=== PATIENT | female | born 1975 | race Caucasian/White ===

== ENCOUNTER 2016-11-05 15:34 | Observation (INO) | payer OTHER ==
[~2016-11-05] VITALS: Ht 175.3 cm; Wt 115.2 kg
[2016-11-05 18:18] LABS: BASO % 0.4 % (0.1-1.2); EOS # 0.3 10_X3_uL (0.0-0.4); EOS % 4.5 % (0.7-5.8); GRAN # 4.5 10_X3_uL (1.6-6.1); GRAN % 63.2 % (34.0-71.1); HEMATOCRIT 37.5 % (34-45); HEMOGLOBIN 12.7 g/dL (11.2-15.7); LYMPH # 1.9 10_X3_uL (1.2-3.7); MEAN CORPUSCULAR HEMOGLOBIN 28.3 pg (27.0-33.0); MEAN CORPUSCULAR HGB CONC 33.9 g/dL (32.0-36.0); MEAN CORPUSCULAR VOLUME 83.5 fL (79-95); MEAN PLATELET VOLUME 9.8 fl (7.5-11.5); MONO # 0.4 10_X3_uL (0.2-0.9); MONO % 5.9 % (4.7-12.5); PLATELET COUNT 298 x10_3/uL (182-369); RED BLOOD COUNT 4.49 x10_6/uL (3.9-5.2); RED CELL DISTRIBUTION WIDTH 14.1 % (11.7-14.4); WHITE BLOOD COUNT 7.1 x10_3/uL (4.0-10.0)
[2016-11-05 19:32] LABS: PH,URINE 6.5 (5.0 - 9.0); URINE BILIRUBIN NEGATIVE (NEGATIVE); URINE BLOOD 1+ (NEGATIVE); URINE GLUCOSE (UA) NORMAL (NORMAL); URINE KETONE NEGATIVE (NEGATIVE); URINE LEUKOCYTE ESTERASE TRACE (NEGATIVE); URINE NITRATE NEGATIVE (NEGATIVE); URINE PROTEIN NEGATIVE (NEGATIVE); UROBILINOGEN NORMAL mg/dL (<1.0)
[2016-11-05 19:48] LABS: ALBUMIN 3.8 gm/dL (3.4-5.0); ALKALINE PHOSPHATASE 65 U/L (50-136); AMYLASE 44 U/L (15.62-74.58); AST/SGOT 14 U/L (7.04-26.96); BILIRUBIN,TOTAL 0.21 mg/dL (0.0-1.0); BLOOD UREA NITROGEN 11 mg/dL (7-18); CARBON DIOXIDE 25 mmol/L (21-32); CREATININE 0.6 mg/dL (0.6-1.3); GLUCOSE,RANDOM 98 mg/dL (70-99); LIPASE 20 U/L (6.75-60.75); POTASSIUM 4.2 mmol/L (3.5-5.1); SODIUM 137 mmol/L (136-145); TOTAL PROTEIN 6.3 gm/dL (6.4-8.2)
[2016-11-05 19:50] LABS: URINE RBC 0-5 /[HPF] (0-2); URINE SQUAMOUS EPITHELIAL CELL >20 /[HPF] (NONE SEEN)
[2016-11-05 19:51] LABS: URINE BACTERIA 1+ (NONE SEEN)
[2016-11-05 20:00] LABS: ALT/SGPT 17 U/L (3.5-33.9)
[2016-11-06 02:09] LABS: PH,URINE 6.5 (5.0 - 9.0); URINE BILIRUBIN NEGATIVE (NEGATIVE); URINE BLOOD 3+ (NEGATIVE); URINE GLUCOSE (UA) NORMAL (NORMAL); URINE KETONE NEGATIVE (NEGATIVE); URINE LEUKOCYTE ESTERASE TRACE (NEGATIVE); URINE NITRATE NEGATIVE (NEGATIVE); URINE PROTEIN NEGATIVE (NEGATIVE); UROBILINOGEN NORMAL mg/dL (<1.0)
[2016-11-06 02:10] LABS: URINE BACTERIA FEW (NONE SEEN); URINE SQUAMOUS EPITHELIAL CELL 0-10 /[HPF] (NONE SEEN)
[2016-11-06 07:32] LABS: BASO % 0.4 % (0.1-1.2); EOS # 0.4 10_X3_uL (0.0-0.4); EOS % 5.1 % (0.7-5.8); GRAN # 4.5 10_X3_uL (1.6-6.1); GRAN % 62.2 % (34.0-71.1); HEMATOCRIT 37.4 % (34-45); HEMOGLOBIN 12.6 g/dL (11.2-15.7); LYMPH # 1.8 10_X3_uL (1.2-3.7); LYMPH % 24.1 % (19.3-51.7); MEAN CORPUSCULAR HGB CONC 33.7 g/dL (32.0-36.0); MEAN CORPUSCULAR VOLUME 83.1 fL (79-95); MEAN PLATELET VOLUME 10.1 fl (7.5-11.5); MONO # 0.6 10_X3_uL (0.2-0.9); MONO % 8.2 % (4.7-12.5); PLATELET COUNT 277 x10_3/uL (182-369); RED CELL DISTRIBUTION WIDTH 14.1 % (11.7-14.4); WHITE BLOOD COUNT 7.3 x10_3/uL (4.0-10.0)
[2016-11-06 07:52] LABS: ALBUMIN 3.7 gm/dL (3.4-5.0); ALKALINE PHOSPHATASE 65 U/L (50-136); ALT/SGPT 18 U/L (3.5-33.9); AMYLASE 40 U/L (15.62-74.58); AST/SGOT 13 U/L (7.04-26.96); BILIRUBIN,TOTAL 0.23 mg/dL (0.0-1.0); BLOOD UREA NITROGEN 13 mg/dL (7-18); CARBON DIOXIDE 24 mmol/L (21-32); CREATININE 0.7 mg/dL (0.6-1.3); GLUCOSE,RANDOM 108 mg/dL (70-99); LIPASE 17 U/L (6.75-60.75); POTASSIUM 3.9 mmol/L (3.5-5.1); SODIUM 139 mmol/L (136-145); TOTAL PROTEIN 6.2 gm/dL (6.4-8.2)
[2016-11-06 15:36] LABS: CALCIUM 8.9 mg/dL (8.7-10.7)
[2016-11-06 15:37] LABS: CALCIUM 9.2 mg/dL (8.7-10.7)
[2016-11-07 07:13] LABS: HEMATOCRIT 41.7 % (34-45); MEAN CORPUSCULAR HEMOGLOBIN 27.8 pg (27.0-33.0); MEAN CORPUSCULAR HGB CONC 33.6 g/dL (32.0-36.0); MEAN CORPUSCULAR VOLUME 82.7 fL (79-95); MEAN PLATELET VOLUME 10.3 fl (7.5-11.5); RED BLOOD COUNT 5.04 x10_6/uL (3.9-5.2); RED CELL DISTRIBUTION WIDTH 14.4 % (11.7-14.4); WHITE BLOOD COUNT 7.5 x10_3/uL (4.0-10.0)
[2016-11-07 07:27] LABS: ALBUMIN 3.9 gm/dL (3.4-5.0); ALKALINE PHOSPHATASE 68 U/L (50-136); ALT/SGPT 16 U/L (3.5-33.9); AST/SGOT 12 U/L (7.04-26.96); BILIRUBIN,TOTAL 0.24 mg/dL (0.0-1.0); BLOOD UREA NITROGEN 12 mg/dL (7-18); CALCIUM 8.9 mg/dL (8.7-10.7); CARBON DIOXIDE 25 mmol/L (21-32); CREATININE 0.7 mg/dL (0.6-1.3); GLUCOSE,RANDOM 114 mg/dL (70-99); POTASSIUM 4.3 mmol/L (3.5-5.1); SODIUM 139 mmol/L (136-145); TOTAL PROTEIN 6.6 gm/dL (6.4-8.2)
== END 2016-11-07 10:35 | disposition home or self-care (01) ==
LOC: MS 15:34
PROVIDERS: ADMIT Family Medicine
DX: N39.0 Urinary tract infection, site not specified (principal); E86.0 Dehydration; R79.89 Other specified abnormal findings of blood chemistry; R10.9 Unspecified abdominal pain; E06.3 Autoimmune thyroiditis; R53.1 Weakness; I10 Essential (primary) hypertension; R60.9 Edema, unspecified; F41.9 Anxiety disorder, unspecified; R94.6 Abnormal results of thyroid function studies; B96.89 Other specified bacterial agents as the cause of diseases classified elsewhere; Z79.899 Other long term (current) drug therapy; Z79.1 Long term (current) use of non-steroidal anti-inflammatories (NSAID); Z88.0 Allergy status to penicillin; Z88.2 Allergy status to sulfonamides; Z80.9 Family history of malignant neoplasm, unspecified; Z83.3 Family history of diabetes mellitus; Z82.49 Family history of ischemic heart disease and other diseases of the circulatory system; Z83.6 Family history of other diseases of the respiratory system
CPT/HCPCS: 36415; 80053; 81001; 81025; 82150; 83690; 83880; 84443; 85025; 87086; 87186; 93306; 96361; 96365; 96366; 96375; 96376; 99070; G0378; G0379

== ENCOUNTER 2017-01-11 15:30 | Emergency (ER) | payer OTHER | END 2017-01-11 19:53 | disposition home or self-care (01) | LOC: ER 15:30 | DX: S13.4XXA Sprain of ligaments of cervical spine, initial encounter (principal); S33.5XXA Sprain of ligaments of lumbar spine, initial encounter; V47.5XXA Car driver injured in collision with fixed or stationary object in traffic accident, initial encounter; Y92.410 Unspecified street and highway as the place of occurrence of the external cause; Z79.899 Other long term (current) drug therapy; Z88.0 Allergy status to penicillin; Z88.2 Allergy status to sulfonamides | CPT/HCPCS: 70450; 72125; 99283-25 ==